=== PATIENT | female | born 1975 | race Caucasian/White ===

== ENCOUNTER 2019-01-28 11:10 | Day surgery (SDC) | payer OTHER ==
[2019-01-28] MEDS: LACTATED RINGER'S 1,000 ML IV (12:51)
[2019-01-28] MEDS ORDERED: SEVOFLURANE 15 MIN (13:45)
[2019-01-28] MEDS ORDERED: FENTAnyl 50 MCG/ML VIAL (13:45)
[2019-01-28] MEDS ORDERED: LIDOCAINE 2% (SDV) 5 ML INJ (13:45)
[2019-01-28] MEDS ORDERED: MIDAZOLAM 1 MG/ML 2 ML INJ (13:45)
[2019-01-28] MEDS ORDERED: PROPOFOL 20 ML (13:45)
[2019-01-28] MEDS ORDERED: ETOMIDATE 20 MG INJ (13:46)
[2019-01-28] MEDS ORDERED: ONDANSETRON 4 MG INJ (13:57)
[2019-01-28] MEDS ORDERED: DEXAMETHASONE 4 MG/ML 5 ML INJ (13:57)
[2019-01-28] MEDS ORDERED: MEPERIDINE 25 MG INJ (14:41)
[2019-01-28] MEDS: HYDROmorphONE 1 MG/5 ML IV SYRINGE IV (14:58)
[2019-01-28] MEDS: MEPERIDINE 25 MG INJ IV (14:58)
[2019-01-28] MEDS ORDERED: FENTAnyl 50 MCG/ML VIAL IV (15:00)
[2019-01-28] MEDS ORDERED: HYDROmorphONE 1 MG/5 ML IV SYRINGE IV (15:00)
[2019-01-28] MEDS ORDERED: ONDANSETRON 4 MG INJ IV (15:00)
== END 2019-01-28 19:00 | disposition home or self-care (01) ==
LOC: SDS 11:10
DX: N75.0 Cyst of Bartholin's gland (principal)
CPT/HCPCS: 56740; 88305

== ENCOUNTER 2019-02-04 14:52 | Emergency (ER) | payer OTHER | END 2019-02-04 15:55 | disposition home or self-care (01) | LOC: FTE 14:52 | DX: T80.89XA Other complications following infusion, transfusion and therapeutic injection, initial encounter (principal); J45.909 Unspecified asthma, uncomplicated; M79.81 Nontraumatic hematoma of soft tissue; Y82.8 Other medical devices associated with adverse incidents | CPT/HCPCS: 99282; Z7502 ==